=== PATIENT | male | born 1975 | race Caucasian/White ===

== ENCOUNTER 2018-02-24 13:44 | Emergency (ER) | payer SELFPAY ==
--- NOTE | 2018-02-24 13:59 | ER Report ---
History and Physical Time Seen By MD: 13:59 HPI/ROS CHIEF COMPLAINT: Anxiety, transient weakness, transient numbness HISTORY OF PRESENT ILLNESS: 42-year-old male patient presents to emergency room with complaint of anxiety, transient weakness and transient numbness. Patient states this been going on for the past couple of months. He states that he has had 4 episodes where he has had anxiety which is followed by transient weakness and transient numbness to lower extremities. He states that he will often feel as if he is going to pass out. He states he sits down and has never passed out but feels that after that passes that he is very weak. He states he does not have a headache with this although he has complained of some head pressure. He states he's had some nausea but denies any vomiting with this. He states that he doesn't have any fevers or chills when this occurs. He states that he does have an appointment with his primary care provider tomorrow. His father states that he has noticed that he does not have the energy that he normally does as concerned about that. REVIEW OF SYSTEMS: Respiratory: No cough, no dyspnea. Cardiovascular: No chest pain, no palpitations. Gastrointestinal: No vomiting, no abdominal pain. Musculoskeletal: As noted above Allergies: Coded Allergies: Penicillins (Verified Allergy, Unknown, 02/24/18) Home Meds Active Scripts Doxycycline Hyclate (DOXYCYCLINE HYCLATE) 100 Mg Capsule, 100 MG PO BID, #14 CAPSULE Prov:RAJANI LANDRY AQUATICS SPECIALIST 02/24/18 Reported Medications Buprenorphine Hcl/Naloxone Hcl (SUBOXONE 4 MG-1 MG SL FILM) 1 Each Film, 1 EACH SL BID, FILM 02/24/18 Past Medical/Surgical History Patient has a past medical history of kidney stones, substance abuse. Patient has surgical history of hernia repair 2, urethral surgery. Reviewed Nurses Notes: Yes Constitutional Vital Sign - Last 24 Hours 02/24/18 02/24/18 02/24/18 02/24/18 13:52 13:55 14:14 14:44 Temp 95.4 Pulse 85 88 78 Resp 20 B/P (MAP) 115/71 115/71 (86) Pulse Ox 94 95 96 O2 Delivery Room Air 02/24/18 02/24/18 02/24/18 02/24/18 15:04 15:34 15:54 16:00 Pulse 84 73 B/P (MAP) 101/68 (79) 100/68 (79) Pulse Ox 95 94 02/24/18 02/24/18 02/24/18 16:04 16:30 16:34 Pulse 62 92 B/P (MAP) 93/57 (69) Pulse Ox 90 94 Physical Exam General Appearance: The patient is alert, has no immediate need for airway protection and no current signs of toxicity. ENT: Tympanic membranes are pearly-flores, auditory canals are patent, mucous mucous membranes are moist. Respiratory: Chest is non tender, lungs are clear to auscultation. Cardiac: regular rate and rhythm Gastrointestinal: Abdomen is soft and non tender, no masses, bowel sounds normal. Musculoskeletal: Neck: Neck is supple and non tender. Extremities have full range of motion and are non tender. Skin: No rashes or lesions. Neuro: Patient is oriented 4, cranial nerves II through XII grossly intact. Patient does have equal strength bilaterally. DIFFERENTIAL DIAGNOSIS: After history and physical exam differential diagnosis was considered for TIA, stroke, new onset Parkinson's, sinusitis, atypical migraine. Medical Decision Making Data Points Result Diagram: 02/24/18 1425 02/24/18 1425 Laboratory Hematology Test 02/24/18 14:25 Red Blood Count 4.70 M/uL (4.00-5.60) Mean Corpuscular Volume 89.0 fL (80.0-96.0) Mean Corpuscular Hemoglobin 30.9 pg (26.0-33.0) Mean Corpuscular Hemoglobin Concent 34.7 g/dL (32.0-36.0) Red Cell Distribution Width 14.3 % (11.5-14.5) Mean Platelet Volume 7.8 fL (7.2-11.1) Neutrophils (%) (Auto) 66.1 % (39.4-72.5) Lymphocytes (%) (Auto) 22.5 % (17.6-49.6) Monocytes (%) (Auto) 8.9 % (4.1-12.4) Eosinophils (%) (Auto) 1.9 % (0.4-6.7) Basophils (%) (Auto) 0.6 % (0.3-1.4) Nucleated RBC Relative Count (auto) 0.1 /100WBC Neutrophils # (Auto) 3.7 K/uL (2.0-7.4) Lymphocytes # (Auto) 1.2 K/uL (1.3-3.6) Monocytes # (Auto) 0.5 K/uL (0.3-1.0) Eosinophils # (Auto) 0.1 K/uL (0.0-0.5) Basophils # (Auto) 0.0 K/uL (0.0-0.1) Nucleated RBC Absolute Count (auto) 0.01 K/uL Erythrocyte Sedimentation Rate 19 mm/HOUR (0-15) Sodium Level 142 mmol/L (137-145) Potassium Level 3.3 mmol/L (3.5-5.0) Chloride Level 102 mmol/L (98-107) Carbon Dioxide Level 29 mmol/L (22-30) Blood Urea Nitrogen 15 mg/dl (9-21) Creatinine 0.70 mg/dl (0.66-1.25) Glomerular Filtration Rate Calc > 60.0 Random Glucose 99 mg/dl (75-110) Calcium Level 9.3 mg/dl (8.4-10.2) Total Bilirubin 0.3 mg/dl (0.2-1.3) Aspartate Amino Transf (AST/SGOT) 24 U/L (0-35) Alanine Aminotransferase (ALT/SGPT) 25 U/L (0-56) Alkaline Phosphatase 62 U/L (0-126) C-Reactive Protein < 0.5 mg/dl (<1.0) Total Protein 8.1 g/dl (6.3-8.2) Albumin 4.4 g/dl (3.5-5.0) Thyroid Stimulating Hormone (TSH) 1.06 uIU/ml (0.46-4.68) Chemistry Test 02/24/18 14:25 White Blood Count 5.5 k/uL (4.5-11.0) Red Blood Count 4.70 M/uL (4.00-5.60) Hemoglobin 14.5 g/dL (14.0-18.0) Hematocrit 41.9 % (42.0-52.0) Mean Corpuscular Volume 89.0 fL (80.0-96.0) Mean Corpuscular Hemoglobin 30.9 pg (26.0-33.0) Mean Corpuscular Hemoglobin Concent 34.7 g/dL (32.0-36.0) Red Cell Distribution Width 14.3 % (11.5-14.5) Platelet Count 272 K/uL (150-450) Mean Platelet Volume 7.8 fL (7.2-11.1) Neutrophils (%) (Auto) 66.1 % (39.4-72.5) Lymphocytes (%) (Auto) 22.5 % (17.6-49.6) Monocytes (%) (Auto) 8.9 % (4.1-12.4) Eosinophils (%) (Auto) 1.9 % (0.4-6.7) Basophils (%) (Auto) 0.6 % (0.3-1.4) Nucleated RBC Relative Count (auto) 0.1 /100WBC Neutrophils # (Auto) 3.7 K/uL (2.0-7.4) Lymphocytes # (Auto) 1.2 K/uL (1.3-3.6) Monocytes # (Auto) 0.5 K/uL (0.3-1.0) Eosinophils # (Auto) 0.1 K/uL (0.0-0.5) Basophils # (Auto) 0.0 K/uL (0.0-0.1) Nucleated RBC Absolute Count (auto) 0.01 K/uL Erythrocyte Sedimentation Rate 19 mm/HOUR (0-15) Glomerular Filtration Rate Calc > 60.0 Calcium Level 9.3 mg/dl (8.4-10.2) Total Bilirubin 0.3 mg/dl (0.2-1.3) Aspartate Amino Transf (AST/SGOT) 24 U/L (0-35) Alanine Aminotransferase (ALT/SGPT) 25 U/L (0-56) Alkaline Phosphatase 62 U/L (0-126) C-Reactive Protein < 0.5 mg/dl (<1.0) Total Protein 8.1 g/dl (6.3-8.2) Albumin 4.4 g/dl (3.5-5.0) Thyroid Stimulating Hormone (TSH) 1.06 uIU/ml (0.46-4.68) EKG/Imaging Imaging EXAMINATION: CT Head without intravenous contrast HISTORY: Headache. TECHNIQUE: Axial images were obtained from the skull base to the vertex without intravenous contrast. Sagittal and coronal reformatted images are also submitted. One of the following dose optimization techniques was utilized in the performance of this exam: Automated exposure control; adjustment of the mA and/or kV according to the patient's size; or use of an iterative reconstruction technique. Specific details can be referenced in the facility's radiology CT exam operational policy. COMPARISON: None available. FINDINGS: Brain volume: Normal. Ventricles: Negative. Acute ischemic changes: None. Hemorrhage: None. Masses / edema: None. Flores-white: Negative. White matter: Negative. Vessels: Negative. Extra-axial: Negative. Calvarium / skull base: Negative. Visualized sinuses / orbits: Mild mucosal thickening in the maxillary sinuses with small retention cyst or polyp on the right. Periapical lucency surrounding the anterior root of the right 1st maxillary molar. Cavity and periapical lucency in the left 3rd maxillary molar. Rightward nasal septal deviation. IMPRESSION: 1. No acute intracranial abnormality. 2. Mild mucosal thickening in the maxillary sinuses with small retention cyst or polyp on the right. Periapical lucency surrounding the anterior root of the right 1st maxillary molar. Cavity and periapical lucency in the left 3rd maxillary molar. 3. Rightward nasal septal deviation. Report Dictated By: Jacob Alva MD at 02/24/2018 3:34 PM Report E-Signed By: Jacob Alva MD at 02/24/2018 3:39 PM ED Course/Re-evaluation ED Course Patient was admitted to an exam room, history of physical or obtained. Differential diagnoses were considered. On examination lungs are clear, heart is regular, abdomen soft nontender. Neurologically patient was alert and oriented 4, cranial nerves II through XII grossly intact, patient did have equal strength bilaterally in upper or lower extremities. A CBC, CMP, CRP, ESR and TSH, CT scan of the head were done. Lab results were unremarkable, patient did have a slightly elevated ESR of 24, CRP was less than 5. Patient had no elevated white count and electrolytes were unremarkable, except patient did have a slightly low potassium of 3.3. CT scan of the head was negative although did show some mild thickening of the mucosa in the maxillary sinuses and a retention cyst. I discussed findings with patient. I informed him that time unsure what is causing this. I do not feel that he had a stroke, as that would've shown up on the CT scan as this is been going on for several months. I encouraged him follow-up with his primary care provider. We will go ahead and treat him with a round of antibiotics. Patient and his parents verbalized understanding and agreement with plan. Decision to Disposition Date: Feb 24, 2018 Decision to Disposition Time: 16:50 Depart Departure Latest Vital Signs Vital Signs Date Time Temp Pulse Resp B/P (MAP) Pulse Ox O2 Delivery O2 Flow Rate FiO2 02/24/18 16:34 92 94 02/24/18 16:30 93/57 (69) 02/24/18 13:52 95.4 20 Room Air Impression: Primary Impression: Sinusitis Additional Impression: Weakness Condition: Improved Disposition: HOME OR SELF-CARE New Scripts Doxycycline Hyclate (DOXYCYCLINE HYCLATE) 100 Mg Capsule 100 MG PO BID, #14 CAPSULE Prov: RAJANI LANDRY 02/24/18 Patient Instructions: Sinusitis (ED) Additional Instructions: Increase fluid intake. Get plenty of rest. Follow up with your primary care provider as scheduled. Return to the ER if condition worsens. Take Tylenol or Ibuprofen as needed for fevers or pain. I am not sure as to the cause of your transient weakness. I anticipate that you may need to follow up with Neurology. Problem Qualifiers Primary Impression: Sinusitis Sinusitis location: maxillary Chronicity: acute Recurrence: non- recurrent Qualified Codes: J01.00 - Acute maxillary sinusitis, unspecified RAJANI LANDRY Feb 24, 2018 13:59
[2018-02-24] MEDS ORDERED: BUPR1FIL SL (14:01)
[2018-02-24] MEDS ORDERED: NS(*) 0.9% 1000 ML BAG 1,000 ML IV ONE (14:16)
[2018-02-24 14:48] LABS: PLATELET COUNT, AUTOMATED 272 K/uL (150-450)
--- NOTE | 2018-02-24 15:43 | RADIOLOGY IMAGING REPORT ---
FAC[place] [facility] [place] NAME: Scott Velasco : 1975 MR: [id number] V: [id number] EXAM DATE: ORDERING PHYSICIAN: RAJANI LANDRY TECHNOLOGIST: Location: [facility] [place] Patient: Scott Velasco : 1975 Visit/Account:[id number] Date of Sevice: 02/24/2018 EXAMINATION: CT Head without intravenous contrast HISTORY: Headache. TECHNIQUE: Axial images were obtained from the skull base to the vertex without intravenous contrast . Sagittal and coronal reformatted images are also submitted. One of the following dose optimization techniques was utilized in the performance of this exam: Autom ated exposure control; adjustment of the mA and/or kV according to the patient's size; or use of an i terative reconstruction technique. Specific details can be referenced in the facility's radiology C T exam operational policy. COMPARISON: None available. FINDINGS: Brain volume: Normal. Ventricles: Negative. Acute ischemic changes: None. Hemorrhage: None. Masses / edema: None. Flores-white: Negative. White matter: Negative. Vessels: Negative. Extra-axial: Negative. Calvarium / skull base: Negative. Visualized sinuses / orbits: Mild mucosal thickening in the maxillary sinuses with small retention c yst or polyp on the right. Periapical lucency surrounding the anterior root of the right 1st maxilla ry molar. Cavity and periapical lucency in the left 3rd maxillary molar. Rightward nasal septal dev iation. IMPRESSION: 1. No acute intracranial abnormality. 2. Mild mucosal thickening in the maxillary sinuses with small retention cyst or polyp on the right. Periapical lucency surrounding the anterior root of the right 1st maxillary molar. Cavity and diandra apical lucency in the left 3rd maxillary molar. 3. Rightward nasal septal deviation. Report Dictated By: Jacob Alva MD at 02/24/2018 3:34 PM Report E-Signed By: Jacob Alva MD at 02/24/2018 3:39 PM [id number]
[2018-02-24 16:30] VITALS: BP 93/57
[2018-02-24] MEDS ORDERED: DOXY-181 PO (16:47)
== END 2018-02-24 17:04 | disposition home or self-care (01) ==
LOC: ER 13:50
DX: J01.00 Acute maxillary sinusitis, unspecified (principal); R53.1 Weakness
CPT/HCPCS: 70450; 84443; 85025; 85651; 86140; 96360; 99284; J7030; 82040; 82247; 82310; 82374; 82435; 82565; 82947; 84075; 84132; 84155; 84295; 84450; 84460; 84520